=== PATIENT | female | born 2000 | race Caucasian/White ===

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

== ENCOUNTER → 2021-03-05 | Outpatient (CLI) | payer OTHER ==
[~2021-03-05] MED LIST changes: +OXYCODONE HCL5 MG PO
== END | disposition home or self-care (01) ==
LOC: COVID19 17:08
PROVIDERS: ATTEND Podiatrist Foot & Ankle Surgery
DX: Z20.822 Contact with and (suspected) exposure to COVID-19 (principal)

== ENCOUNTER 2021-07-02 22:06 | Emergency (ER) | payer OTHER ==
[~2021-07-02] VITALS: Ht 167.6 cm; Wt 49.9 kg
[2021-07-02] MEDS ORDERED: VIBRAMYCIN100 MG PO (22:39)
[2021-07-02] MEDS ORDERED: ERYTHROMYCIN OPH1 GM OPH (22:39)
[2021-07-02 23:06] LABS: BILIRUBIN Negative (Negative); BLOOD Negative (Negative); CLARITY Clear (Clear); COLOR Yellow (Yellow); GLUCOSE Negative (Negative); KETONE Trace (Negative); LEUKO ESTERASE 2+ (Negative); NITRITE Negative (Negative); SPECIFIC GRAVITY 1.025 (1.001-1.030)
[2021-07-03 00:10] LABS: EPITHELIAL CELLS 21-30; WBC 16-20 wbc/hpf (0-5)
== END 2021-07-02 23:15 | disposition home or self-care (01) ==
LOC: ED 22:06
PROVIDERS: Physician Assistant
DX: H00.022 Hordeolum internum right lower eyelid (principal); Z20.2 Contact with and (suspected) exposure to infections with a predominantly sexual mode of transmission; Z91.040 Latex allergy status; Z79.899 Other long term (current) drug therapy

== ENCOUNTER 2021-07-13 18:33 | Emergency (ER) | payer OTHER ==
[~2021-07-13] VITALS: Ht 167.6 cm; Wt 52.2 kg
[~2021-07-13 18:33] MED LIST changes: +ERYTHROMYCIN OPH1 GM OPH; +VIBRAMYCIN100 MG PO
[2021-07-13 20:23] LABS: BILIRUBIN Negative (Negative); BLOOD 3+ (Negative); CLARITY Turbid (Clear); COLOR Orange (Yellow); GLUCOSE Negative (Negative); KETONE Negative (Negative); LEUKO ESTERASE 1+ (Negative); NITRITE Negative (Negative); PH 7.5 (4.5-8.0)
[2021-07-13 20:34] LABS: BACTERIA 2+; RBC TNTC rbc/hpf (0-2)
[2021-07-13 20:35] LABS: EPITHELIAL CELLS 0-2
== END 2021-07-13 21:14 | disposition home or self-care (01) ==
LOC: ED 18:33
PROVIDERS: Emergency Medicine
DX: N94.89 Other specified conditions associated with female genital organs and menstrual cycle (principal)

== ENCOUNTER 2022-03-14 22:34 | Emergency (ER) | payer OTHER ==
[~2022-03-14] VITALS: Ht 167.6 cm; Wt 49.9 kg
[2022-03-14 23:03] LABS: BILIRUBIN Negative (Negative); BLOOD 3+ (Negative); CLARITY Clear (Clear); COLOR Yellow (Yellow); GLUCOSE Negative (Negative); KETONE Trace (Negative); LEUKO ESTERASE Trace (Negative); NITRITE Negative (Negative); SPECIFIC GRAVITY >= 1.030 (1.001-1.030)
[2022-03-14 23:14] LABS: RBC 31-40 rbc/hpf (0-2)
== END 2022-03-14 23:49 | disposition home or self-care (01) ==
LOC: ED 22:34
PROVIDERS: Internal Medicine
DX: O20.9 Hemorrhage in early pregnancy, unspecified (principal); Z3A.14 14 weeks gestation of pregnancy

== ENCOUNTER 2022-11-16 15:50 | Emergency (ER) | payer OTHER ==
[~2022-11-16] VITALS: Ht 165.1 cm; Wt 54.4 kg
[2022-11-16 17:00] LABS: BILIRUBIN Negative (Negative); BLOOD Negative (Negative); CLARITY Cloudy (Clear); COLOR Yellow (Yellow); GLUCOSE Negative (Negative); KETONE Trace (Negative); LEUKO ESTERASE 2+ (Negative); NITRITE Negative (Negative); SPECIFIC GRAVITY 1.025 (1.001-1.030)
[2022-11-16 17:10] LABS: RBC 0-2 rbc/hpf (0-2)
[2022-11-16 17:11] LABS: BACTERIA 2+; EPITHELIAL CELLS 0-2; WBC TNTC wbc/hpf (0-5)
[2022-11-16] MEDS ORDERED: MACROBID100 M1 PO (18:01)
== END 2022-11-16 20:27 | disposition home or self-care (01) ==
LOC: ED 15:50
PROVIDERS: Internal Medicine
DX: N39.0 Urinary tract infection, site not specified (principal); Z98.890 Other specified postprocedural states

== ENCOUNTER 2023-01-01 01:53 | Emergency (ER) | payer OTHER ==
[~2023-01-01] VITALS: Ht 167.6 cm; Wt 63.0 kg
[~2023-01-01 01:53] MED LIST changes: +MACROBID100 M1 PO
[2023-01-01] MEDS ORDERED: NORETHINDRONE0.35 M1 PO (02:13)
[2023-01-01 03:22] LABS: BILIRUBIN Negative (Negative); BLOOD Negative (Negative); CLARITY Clear (Clear); COLOR Yellow (Yellow); GLUCOSE Negative (Negative); KETONE Negative (Negative); LEUKO ESTERASE Negative (Negative); NITRITE Negative (Negative); SPECIFIC GRAVITY >= 1.030 (1.001-1.030); UROBILINOGEN 0.2 E.U./dl (0.0-1.0)
[2023-01-01 03:31] LABS: EPITHELIAL CELLS 16-20
[2023-01-01 03:32] LABS: BACTERIA TRACE
[2023-01-01] MEDS ORDERED: FLUONAZOLE150 M1 PO (03:43)
== END 2023-01-01 04:10 | disposition home or self-care (01) ==
LOC: ED 01:53
PROVIDERS: Internal Medicine
DX: B37.31 Acute candidiasis of vulva and vagina (principal); Z20.2 Contact with and (suspected) exposure to infections with a predominantly sexual mode of transmission; Z87.891 Personal history of nicotine dependence

== ENCOUNTER 2024-03-26 16:49 | Emergency (ER) | payer OTHER ==
[~2024-03-26] VITALS: Ht 167.6 cm; Wt 64.0 kg
[~2024-03-26 16:49] MED LIST changes: +FLUONAZOLE150 M1 PO; +NORETHINDRONE0.35 M1 PO
[2024-03-26] MEDS ORDERED: FLUONAZOLE150 M1 PO (17:53)
[2024-03-26] MEDS ORDERED: FLUCONAZOLE 150 MG TAB PO ONE (17:55)
== END 2024-03-26 17:56 | disposition home or self-care (01) ==
LOC: ED 16:49
DX: B37.31 Acute candidiasis of vulva and vagina (principal)

== ENCOUNTER 2024-04-09 03:45 | Emergency (ER) | payer OTHER ==
[~2024-04-09] VITALS: Ht 167.6 cm; Wt 63.5 kg
[2024-04-09] MEDS ORDERED: Ketorolac Tromethamine 30 MG/ML VIAL IM ONE (05:30)
== END 2024-04-09 05:37 | disposition home or self-care (01) ==
LOC: ED 03:45
DX: J10.1 Influenza due to other identified influenza virus with other respiratory manifestations (principal); Z20.822 Contact with and (suspected) exposure to COVID-19